=== PATIENT | male | born 1925 | race Native Hawaiian/Other Pacific Islander ===

== ENCOUNTER 2016-06-24 13:37 | Outpatient (CLI) | payer OTHER, MEDICARE ==
[~2016-06-24 13:37] MED LIST: LISI10TA11 PO; METFORMIN ER1000 MG PO; MICROZIDE12.5 MG OR
[2016-06-24 14:19] LABS: POTASSIUM 3.9 mmol/L (3.6-5.2)
== END 2016-06-24 19:20 | disposition home or self-care (01) ==
LOC: LABW 13:37
PROVIDERS: Internal Medicine Cardiovascular Disease
DX: I10 Essential (primary) hypertension (principal); R06.02 Shortness of breath
CPT/HCPCS: 36415; 80048; 83880

== ENCOUNTER 2016-07-02 07:41 | Outpatient (CLI) | payer OTHER, MEDICARE ==
[~2016-07-02] VITALS: Ht 177.8 cm; Wt 88.5 kg
== END 2016-07-02 08:41 | disposition home or self-care (01) ==
LOC: NM 07:41
DX: I10 Essential (primary) hypertension (principal); E11.9 Type 2 diabetes mellitus without complications
CPT/HCPCS: 93306; A9500; J2785

== ENCOUNTER 2016-07-04 20:49 | Emergency (ER) | payer OTHER, MEDICARE ==
[~2016-07-04] VITALS: Ht 177.8 cm; Wt 88.5 kg
[2016-07-04 21:10] VITALS: BP 143/69; TEMP 98.6
[2016-07-04 21:58] LABS: POTASSIUM 3.7 mmol/L (3.6-5.2); SODIUM 137 mmol/L (136-145)
[2016-07-04 23:06] LABS: PLATELET COUNT 256 K/uL (142-355)
[2016-07-05 00:19] LABS: PARTIAL THROMBOPLASTIN TIME 26.7 SECONDS (24.5-33.6)
== END 2016-07-05 00:51 | disposition short-term general hospital (02) ==
LOC: ED 20:49
PROVIDERS: Specialist
DX: R07.89 Other chest pain (principal); I24.9 Acute ischemic heart disease, unspecified; I45.19 Other right bundle-branch block
CPT/HCPCS: 80053; 81000; 82150; 82550; 82553; 83690; 83735; 84484; 85027; 85610; 85730; 93005; 96365; 96375; 99285; J1644; J2270; J2405; J3490

== ENCOUNTER 2016-07-05 00:52 | Outpatient (CLI) | payer OTHER, MEDICARE | END 2016-07-05 02:07 | disposition short-term general hospital (02) | LOC: AMB 00:52 | DX: R07.89 Other chest pain (principal); I24.9 Acute ischemic heart disease, unspecified; I45.19 Other right bundle-branch block | CPT/HCPCS: A0425; A0427 ==

== ENCOUNTER 2016-09-29 08:16 | Outpatient (CLI) | payer OTHER, MEDICARE ==
[2016-09-29 09:00] LABS: POTASSIUM 3.9 mmol/L (3.6-5.2); SODIUM 140 mmol/L (136-145)
[2016-09-29 09:04] LABS: PLATELET COUNT 253 K/uL (142-355)
== END 2016-09-29 09:20 | disposition home or self-care (01) ==
LOC: LABW 08:16
PROVIDERS: Internal Medicine
DX: E11.9 Type 2 diabetes mellitus without complications (principal)
CPT/HCPCS: 36415; 80053; 80061; 81000; 82043; 82570; 83036; 84443; 85027

== ENCOUNTER 2016-12-17 09:19 | Outpatient (CLI) | payer OTHER, MEDICARE | END 2016-12-17 18:59 | disposition home or self-care (01) | LOC: LABW 09:19 | DX: R19.7 Diarrhea, unspecified (principal) | CPT/HCPCS: 82272; 87015; 87045; 87205; 87206; 87324; 87328; 87329; 87449; 87899 ==

== ENCOUNTER 2017-05-25 08:26 | Outpatient (CLI) | payer OTHER, MEDICARE ==
[2017-05-25 08:42] LABS: PLATELET COUNT 254 K/uL (142-355)
== END 2017-05-25 20:04 | disposition home or self-care (01) ==
LOC: LABW 08:26
PROVIDERS: Internal Medicine
DX: E11.9 Type 2 diabetes mellitus without complications (principal)
CPT/HCPCS: 36415; 80053; 80061; 81000; 83036; 84443; 85027